=== PATIENT | female | born 1940 | race Caucasian/White ===

== ENCOUNTER 2017-05-24 12:11 | Emergency (ER) | payer MEDICARE, OTHER ==
[~2017-05-24] VITALS: Ht 162.6 cm; Wt 68.2 kg
[2017-05-24 12:13] VITALS: BP 149/77; PULSE 69; RESP 16; O2SAT 98
--- NOTE | 2017-05-24 12:26 | ED.REPORT ---
HPI-Trauma Minor / Fall Date of Service May 24, 2017 ED Provider: Maria Guadalupe Foss MD The pt is a 76 y/o female presenting to the ED due to a GLF. She describes walking w/ a cane, carrying a bag over her shoulder, shifting the weight, and falling over. She is experiencing R 4th finger, R wrist, R leg, and chest pain due to falling on her cane. Denies SOB. The pt also reports flying to [place] a week ago, and her R leg swelling four days after that. She reports having a Bakers cyst on her R leg. She just got back from [place] earlier this morning. Nursing Notes Stated Complaint: FALL Chief Complaint: GLF Nursing Notes Reviewed: Yes Allergies: Coded Allergies: Penicillins (Verified Allergy, Intermediate, rash, 05/24/17) Sulfa (Sulfonamide Antibiotics) (Verified Allergy, Intermediate, rash, ) General Time Seen by MD: 12:25 Chief Complaint Other (GLF) Hx Obtained From: Patient Arrived By: Walk-in Onset Occurred: Just prior to arrival Symptom Duration: Since onset Recent Healthcare: No recent hospitalization, Recent doctor visit Similar Sx Previous: Yes Past Medical History Past Medical History Bakers cyst on R calf Past Surgical History None reported Smoking History Unknown if Ever Smoker Social History Other Social History: Good social support Ambulatory Status Cane Review of Systems + Chest pain due to falling on cane; + R 4th finger pain; Respiratory: Denies: Shortness of breath Musculoskeletal: Reports: Extremity pain (RLE ), Extremity swelling (RLE ), Joint pain (R wrist ) Complete sys rev & neg: except as marked. Physical Exam Initial Vital Signs Vital Signs (First) Date Time Temp Pulse Resp B/P Pulse Ox O2 Delivery O2 Flow Rate FiO2 05/24/17 12:13 36.6 69 16 149/77 98 Room Air Initial VS: Reviewed Head / Eyes: Atraumatic, Normocephalic, PERRL ENT: Mucous membranes moist, Conjunctiva normal, No scleral icterus Respiratory: Breath sounds normal, Clear to auscultation, No respiratory distress Skin: Warm, Dry, No cyanosis Neurologic: Alert, Oriented, Nonfocal Psychiatric: Mood/affect normal, Behavior normal, Normal thought content General/Constitutional: Awake, Alert Neck: Atraumatic, Supple, Full range of motion Cardiovascular: Heart rate NL, Regular rhythm, Heart sounds NL Non-pitting RLE edema that is significantly greater than the LLE. No warmth or erythema; Upper Extremity / MS: No deformity Bruising to R elbow, R forearm, and distal palmar surface of the R 4th finger; Interpretation & Diagnostics Interpretation & Diagnostics: Ultrasound of the right lower extremity reveals the known Calhoun's cyst but no evidence of DVT Re-Eval/Medical Decision Med Decision/Clinical Course Mechanical fall, landing on her right hand forearm and elbow. This happened just after getting off the airplane returning from [place]. Also noted to have significant right lower extremity edema. No evidence of a DVT she has her continued popliteal cyst that had been noted previously. The expanding hematoma on the right forearm is wrapped to try to encourage clotting. Her hand and fourth finger are placed in a splint. Was shared decision making we opted to not proceed with any x-rays at this point. Once the swelling to the tip of her fourth finger increases if she finds that she has any type of deformity will encourage her to follow-up with her primary care physician. We will encourage her to use the splint provided for that finger until the swelling is down and we can confirm that there is no additional tendon or soft tissue injury. Source of Hx: Old records Re-Evaluation/Progress : Time of Eval: 13:48 Re-Evaluation/Progress Note: Informed pt of negative US results. Informed pt of plan for treatment. Pt understands and agrees with plan for treatment. F/U instructions and RTER warnings given. All questions addressed. Counseled Regarding: Diagnosis, Lab results, Need for follow-up, When/why to return to ED Discharge & Departure Impression: Primary Impression: Fall Encounter type: initial encounter Qualified Code: W19.XXXA - Unspecified fall, initial encounter Additional Impressions: Arm contusion Encounter type: initial encounter Laterality: right Qualified Code: S40.021A - Contusion of right upper arm, initial encounter Finger contusion Encounter type: initial encounter Finger: ring finger Damage to nail status : without damage Laterality: right Qualified Code: S60.041A - Contusion of right ring finger without damage to nail, initial encounter Ruled Out: Dvt femoral (deep venous thrombosis) Disposition: Home Discharge Condition All VS Reviewed: Yes Condition: Stable Additional Instructions: Thank for you entrusting us with your care today. Your ultrasound showed no signs of DVT. I recommend you continue to use the finger splint until the swelling has decreased. Taking two Ibuprofen with one Tylenol may help with your pain as well. Please return to the emergency department if you experience any new or worsening symptoms. I hope you feel better soon. Referrals: Miriam Love MD (PCP) Scribe Attestation Portions of this note were transcribed by Micah Cao. I, Dr. Foss personally performed the history, physical exam and medical decision-making; I reviewed and confirmed the accuracy of the information in the transcribed note. copies to: Miriam Love MD, Shawna L MD May 24, 2017 12:26 Micah Cao May 24, 2017 12:42
--- NOTE | 2017-05-24 14:14 | DRSVH ---
PROCEDURE: US VEINOUS LEG DUPLEX UNILATERAL, RIGHT INDICATIONS: concern for DVT (flight to [place], known calhoun cys TECHNIQUE: Real-time imaging, as well as color and pulse Doppler interrogation, were performed of the lower extr emity deep veins from the inguinal ligament to the popliteal fossa. COMPARISON: [facility] Ultrasound, US, US VENOUS LEG DPLX UNI RT, 05/04/2017, 11:02. FINDINGS: The deep veins are normally compressible, and free of intraluminal thrombus. Color and pu lse Doppler demonstrate normal phasic intraluminal flow. There is normal augmentation response to di stal compression maneuver. Note is made of a Calhoun's cyst in the popliteal fossa measuring 4.2 x 2.4 x 1.0 cm. IMPRESSION: No DVT in the right lower extremity. A Calhoun cyst in the right popliteal fossa. Dictated by: Nicky Espana M.D. on 05/24/2017 at 14:11 Approved by: Nicky Espana M.D. on 05/24/2017 at 14:12
== END 2017-05-24 14:58 | disposition home or self-care (01) ==
LOC: SED 12:11
DX: S40.021A Contusion of right upper arm, initial encounter (principal); S60.041A Contusion of right ring finger without damage to nail, initial encounter; W01.0XXA Fall on same level from slipping, tripping and stumbling without subsequent striking against object, initial encounter; Y93.89 Activity, other specified; Y92.89 Other specified places as the place of occurrence of the external cause; Y99.8 Other external cause status; M25.531 Pain in right wrist; M79.604 Pain in right leg; R07.9 Chest pain, unspecified; M79.89 Other specified soft tissue disorders; M71.21 Synovial cyst of popliteal space [Baker], right knee; Z88.0 Allergy status to penicillin; Z88.2 Allergy status to sulfonamides